=== PATIENT | male | born 1985 | race Caucasian/White ===

== ENCOUNTER 2019-09-30 11:32 | Emergency (ER) | payer SELFPAY ==
[2019-09-30 12:06] VITALS: BP 116/63
[2019-09-30] MEDS ORDERED: ASPIRIN 81 MG TABLET, CHEWABLE PO ONE (12:33)
--- NOTE | 2019-09-30 12:35 | ER Document Report ---
ED Medical Screen (RME) - General Chief Complaint: Chest Pain Stated Complaint: CHEST PAIN Time Seen by Provider: 09/30/19 12:31 Mode of Arrival: Ambulatory Information source: Patient Notes: 33-year-old male presented to ED for complaint of chest pain to the center of his chest since a.m. He states he has never had pain like this in the past. He states he has no shortness of breath. He does have a history of spina bifida. He does smoke a pack a day drinks 2-3 beers a day but no use of illicit drugs. Patient is alert oriented respirations regular and unlabored speaking in full sentences. Was texting throughout his review. I have greeted and performed a rapid initial assessment of this patient. A comprehensive ED assessment and evaluation of the patient, analysis of test res ults and completion of medical decision making process will be conducted by an additional ED providers. Physical Exam - Vital signs Vitals: Temp Pulse Resp BP Pulse Ox 98.5 F 64 16 116/63 100 09/30/19 12:05 09/30/19 12:05 09/30/19 12:05 09/30/19 12:05 09/30/19 12:05 Course - Vital Signs Vital signs: Temp Pulse Resp BP Pulse Ox 98.5 F 64 16 116/63 100 09/30/19 12:05 09/30/19 12:05 09/30/19 12:05 09/30/19 12:05 09/30/19 12:05
[2019-09-30 13:28] LABS: ABSOLUTE EOSINOPHILS # (AUTO) 0.1 10^3/uL (0.0-0.6); ABSOLUTE LYMPHOCYTES (AUTO) 1.3 10^3/uL (0.5-4.7); ABSOLUTE MONOCYTES (AUTO) 0.5 10^3/uL (0.1-1.4); ABSOLUTE NEUT (AUTO) 4.8 10^3/uL (1.7-8.2); BASOPHILS % (AUTO) 0.3 % (0-2); EOSINOPHILS % (AUTO) 1.3 % (0-6); HEMATOCRIT 43.5 % (37.9-51.0); HEMOGLOBIN 14.9 g/dL (13.5-17.0); MEAN CORPUSCULAR HEMOGLOBIN 32.6 pg (27.0-33.4); MEAN CORPUSCULAR HGB CONC 34.2 g/dL (32.0-36.0); MEAN CORPUSCULAR VOLUME 95 fl (80-97); MONOCYTES % (AUTO) 7.3 % (3-13); PLATELET COUNT 249 10^3/uL (150-450); RED BLOOD COUNT 4.56 10^6/uL (4.35-5.55); RED CELL DISTRIBUTION WIDTH 13.4 % (11.5-14.0); SEGMENTED NEUTROPHILS % (AUTO) 72.1 % (42-78); TOTAL CELLS COUNTED % (AUTO) 100 %; WHITE BLOOD COUNT 6.6 10^3/uL (4.0-10.5)
[2019-09-30 13:49] LABS: ALBUMIN 4.7 g/dL (3.5-5.0); ALKALINE PHOSPHATASE 60 U/L (38-126); ANION GAP 6 (5-19); ASPARTATE AMINO TRANSFERASE 134 U/L (17-59); BILIRUBIN,TOTAL 0.5 mg/dL (0.2-1.3); BLOOD UREA NITROGEN 17 mg/dL (7-20); CALCIUM 9.9 mg/dL (8.4-10.2); CARBON DIOXIDE 29 mmol/L (22-30); CHLORIDE 104 mmol/L (98-107); GLUCOSE 81 mg/dL (75-110); POTASSIUM 4.5 mmol/L (3.6-5.0); TOTAL PROTEIN 8.3 g/dL (6.3-8.2)
--- NOTE | 2019-09-30 14:05 | RADIOLOGY REPORT (SQ) ---
EXAM DESCRIPTION: CHEST 2 VIEWS IMAGES COMPLETED DATE/TIME: 09/30/2019 1:45 pm REASON FOR STUDY: Pain center of his chest since morning COMPARISON: None. EXAM PARAMETERS: NUMBER OF VIEWS: Two views. TECHNIQUE: PA and lateral views of the chest were obtained. RADIATION DOSE: NA LIMITATIONS: None. FINDINGS: LUNGS AND PLEURA: No consolidation, pleural effusion or pneumothorax. MEDIASTINUM AND HILAR STRUCTURES: No mediastinal or hilar contour abnormality. HEART AND VASCULAR STRUCTURES: The cardiac silhouette and pulmonary vasculature are within normal serna its. BONES: No acute findings. HARDWARE: None in the chest. OTHER: No other finding. IMPRESSION: No acute cardiopulmonary process. TECHNICAL DOCUMENTATION: JOB ID: [id number] 2010 [employer]- All Rights Reserved Reading location - IP/workstation name: [email or web address]
--- NOTE | 2019-09-30 14:33 | ER Document Report ---
ED Cardiac - General Chief Complaint: Chest Pain Stated Complaint: CHEST PAIN Time Seen by Provider: 09/30/19 12:31 Mode of Arrival: Ambulatory Notes: HPI: Patient is a 33-year-old male who presents today stating the onset of some chest discomfort this morning. He states it is to the substernal region without radiation. No aggravating relieving factors. No cough, fevers, vomiting, or leg swelling. No recent trips or travel. Patient does not use illicit drugs including no cocaine. No family history of early heart attacks or strokes. No recent trauma to the chest. ROS: See HPI All other review of systems reviewed and otherwise negative Reviewed vital signs and nursing note as charted by RN. PHYSICAL EXAM: CONSTITUTIONAL: Alert and oriented and responds appropriately to questions. Well-appearing; well-nourished HEAD: Normocephalic; atraumatic NECK: Supple without meningismus; non-tender; no cervical lymphadenopathy, no masses CARD: Regular rate and rhythm; no murmurs; symmetric distal pulses RESP: Normal chest excursion without splinting or tachypnea; breath sounds clear and equal bilaterally; no wheezes, no rhonchi, no rales ABD/GI: Normal bowel sounds; non-distended; soft, non-tender; no palpable organomegaly or masses BACK: The back appears normal and is non-tender to palpation EXT: Normal ROM in all joints; non-tender to palpation; no edema SKIN: No acute lesions noted NEURO: CN 2-12 intact; 5/5 bilateral upper and lower extremity strength with sensation intact to light touch PSYCH: The patient's mood and manner are appropriate. Grooming and personal hygiene are appropriate. - Related Data Allergies/Adverse Reactions: No Known Allergies Allergy (Verified 09/30/19 12:34) Past Medical History - General Information source: Patient - Social History Smoking Status: Current Every Day Smoker Chew tobacco use (# tins/day): Yes Frequency of alcohol use: daily Drug Abuse: None Family History: Reviewed & Not Pertinent Patient has homicidal ideation: No Physical Exam - Vital signs Vitals: Temp Pulse Resp BP Pulse Ox 98.5 F 64 16 116/63 100 09/30/19 12:05 09/30/19 12:05 09/30/19 12:05 09/30/19 12:05 09/30/19 12:05 Course - Re-evaluation Re-evalutation: Given the above history and physical examination as well as the vital signs as recorded showing no hypoxia or tachycardia, I do believe that the patient has a very low pretest probability for PE or dissection. Patient has very minimal risk factors for acute coronary syndrome. EKG shows a heart rate of 64, normal sinus rhythm, normal axis, slight J-point elevation, no reciprocal changes. No ST elevation or depression. 09/30/19 14:30 X-ray of the chest, repeat vital signs, and labs as recorded. Patient has no tenderness to the right upper quadrant. I have had a long discussion with the patient regarding alcohol use and he does state he drinks heavily. He understa nds the importance of drinking cessation. He understands to return immediately with any change in his pain to his chest or any abdominal pain. I believe this is most likely musculoskeletal in nature. Heart score is less than or equal to 3. Patient will be discharged home with strict return precautions and instructions regarding ibuprofen administration. - Vital Signs Vital signs: Temp Pulse Resp BP Pulse Ox 98.5 F 64 16 116/63 100 09/30/19 12:31 09/30/19 12:05 09/30/19 12:05 09/30/19 12:05 09/30/19 12:05 - Laboratory Result Diagrams: 09/30/19 13:02 09/30/19 13:02 Laboratory results interpreted by me: 09/30/19 13:02 AST 134 H ALT 323 H Total Protein 8.3 H Discharge - Discharge Clinical Impression: Atypical chest pain, Transaminitis Condition: Good Disposition: HOME, SELF-CARE Additional Instructions: Come back immediately for any increased pain, change in location or quality of pain, fevers or vomiting, leg swelling, or any other acute problems. Please refrain from alcohol intake as we have discussed and follow-up with your primary care physician for reassessment of your liver enzymes. Please take 600 mg of ibuprofen every 6 hours as needed for the next 5 days for pain.
--- NOTE | 2019-09-30 14:59 | EKG REPORT ---
SEVERITY:- NORMAL ECG - SINUS RHYTHM ST ELEV, PROBABLE NORMAL EARLY REPOL PATTERN : Confirmed by: Sera Roy MD 30-Sep-2019 14:59:23
== END 2019-09-30 15:22 | disposition home or self-care (01) ==
LOC: ER 11:32
DX: R07.89 Other chest pain (principal); R74.0 Nonspecific elevation of levels of transaminase and lactic acid dehydrogenase [LDH]; F17.210 Nicotine dependence, cigarettes, uncomplicated
CPT/HCPCS: 36415; 71046; 80053; 84484; 85025; 93005; 93010; 99285

== ENCOUNTER 2020-02-09 16:19 | Emergency (ER) | payer SELFPAY ==
--- NOTE | 2020-02-09 16:43 | ER Document Report ---
ED Medical Screen (RME) - General Chief Complaint: Hand Injury Stated Complaint: LEFT HAND/FINGERS PAIN,SWELLING Time Seen by Provider: 02/09/20 16:33 Notes: Patient is a 34-year-old male who presents emergency department with a chief complaint of left third and fourth digit pain. Patient states that he noticed some swelling last night. Patient states he "blacked out" from drinking. He does not know if there was any injury. Denies any fever, body aches, or chills. He has a history of IV drug use. States that he has been clean for 11 months. Exam: Tenderness and edema noted to left third and fourth digits. I have greeted and performed a rapid initial assessment of this patient. A comprehensive ED assessment and evaluation of the patient, analysis of test results and completion of medical decision making process will be conducted by an additional ED providers. - Related Data Allergies/Adverse Reactions: No Known Allergies Allergy (Verified 02/09/20 16:35) Past Medical History - Social History Chew tobacco use (# tins/day): No Frequency of alcohol use: Heavy Drug Abuse: None Physical Exam - Vital signs Vitals: Temp Pulse Resp BP Pulse Ox 98.2 F 70 20 136/74 H 97 02/09/20 16:26 02/09/20 16:26 02/09/20 16:26 02/09/20 16:26 02/09/20 16:26 Course - Vital Signs Vital signs: Temp Pulse Resp BP Pulse Ox 98.2 F 70 20 136/74 H 97 02/09/20 16:26 02/09/20 16:26 02/09/20 16:26 02/09/20 16:26 02/09/20 16:26
[2020-02-09 17:21] LABS: ABSOLUTE EOSINOPHILS # (AUTO) 0.1 10^3/uL (0.0-0.6); ABSOLUTE LYMPHOCYTES (AUTO) 1.7 10^3/uL (0.5-4.7); ABSOLUTE MONOCYTES (AUTO) 0.6 10^3/uL (0.1-1.4); BASOPHILS % (AUTO) 0.2 % (0-2); HEMATOCRIT 45.7 % (37.9-51.0); HEMOGLOBIN 16.1 g/dL (13.5-17.0); LYMPHOCYTES % (AUTO) 16.5 % (13-45); MEAN CORPUSCULAR HEMOGLOBIN 32.3 pg (27.0-33.4); MEAN CORPUSCULAR HGB CONC 35.3 g/dL (32.0-36.0); MEAN CORPUSCULAR VOLUME 91 fl (80-97); MONOCYTES % (AUTO) 6.1 % (3-13); PLATELET COUNT 303 10^3/uL (150-450); RED CELL DISTRIBUTION WIDTH 12.5 % (11.5-14.0); SEGMENTED NEUTROPHILS % (AUTO) 76.2 % (42-78); TOTAL CELLS COUNTED % (AUTO) 100 %; WHITE BLOOD COUNT 10.5 10^3/uL (4.0-10.5)
[2020-02-09 17:42] LABS: ALBUMIN 5.3 g/dL (3.5-5.0); ALKALINE PHOSPHATASE 95 U/L (38-126); ANION GAP 12 (5-19); ASPARTATE AMINO TRANSFERASE 62 U/L (17-59); BILIRUBIN,DIRECT 0.3 mg/dL (0.0-0.4); BILIRUBIN,TOTAL 0.6 mg/dL (0.2-1.3); BLOOD UREA NITROGEN 11 mg/dL (7-20); CALCIUM 10.2 mg/dL (8.4-10.2); CARBON DIOXIDE 26 mmol/L (22-30); CHLORIDE 105 mmol/L (98-107); GLUCOSE 90 mg/dL (75-110); TOTAL PROTEIN 9.3 g/dL (6.3-8.2)
[2020-02-09 17:49] LABS: URINE AMPHETAMINES SCREEN NEGATIVE; URINE BARBITURATES SCREEN NEGATIVE; URINE BENZODIAZEPINES SCREEN NEGATIVE; URINE COCAINE SCREEN NEGATIVE; URINE METHADONE SCREEN NEGATIVE; URINE PHENCYCLIDINE SCREEN NEGATIVE
[2020-02-09 17:50] LABS: URINE MARIJUANA (THC) SCREEN UNCONFIRMED POSITIVE
--- NOTE | 2020-02-09 18:18 | RADIOLOGY REPORT (SQ) ---
EXAM DESCRIPTION: HAND LEFT 3 VIEWS IMAGES COMPLETED DATE/TIME: 02/09/2020 4:58 pm REASON FOR STUDY: left hand pain at 3rd and 4th digits proximally. Pain and swelling. No reported injury. COMPARISON: None. EXAM PARAMETERS: NUMBER OF VIEWS: Three views. TECHNIQUE: AP, lateral and oblique radiographic images acquired of the left hand. LIMITATIONS: None. FINDINGS: MINERALIZATION: Normal. BONES: No acute fracture or dislocation. No worrisome bone lesions. JOINTS: No effusions. SOFT TISSUES: No soft tissue swelling. No foreign body. OTHER: No other significant finding. IMPRESSION: NEGATIVE STUDY OF THE LEFT HAND. NO RADIOGRAPHIC EVIDENCE OF ACUTE INJURY. TECHNICAL DOCUMENTATION: JOB ID: [id number] 2010 [employer]- All Rights Reserved Reading location - IP/workstation name: [email or web address]
--- NOTE | 2020-02-09 18:59 | ER Document Report ---
ED General - General Chief Complaint: Hand Injury Stated Complaint: LEFT HAND/FINGERS PAIN,SWELLING Time Seen by Provider: 02/09/20 16:33 - HPI Notes: 34-year-old male presents with pain to his left hand and third/fourth fingers. Patient states that he woke up today and noticed that his fingers were swollen and there was some bruising. He denies any known injury. However states that he consumed a lot of alcohol yesterday and blacked out. He did not have any injury before blacking out. He has no known wound to the areas. Pain is worsened by bending his fingers. He did not take any medications for pain. - Related Data Allergies/Adverse Reactions: No Known Allergies Allergy (Verified 02/09/20 16:35) Past Medical History - General Information source: Patient - Social History Smoking Status: Current Every Day Smoker Chew tobacco use (# tins/day): No Frequency of alcohol use: Heavy Drug Abuse: None Family History: Reviewed & Not Pertinent Patient has homicidal ideation: No Review of Systems - Review of Systems Constitutional: denies: Fever EENT: No symptoms reported Cardiovascular: No symptoms reported Respiratory: No symptoms reported Gastrointestinal: No symptoms reported Genitourinary: No symptoms reported Male Genitourinary: No symptoms reported Musculoskeletal: See HPI Skin: denies: Lesions Hematologic/Lymphatic: No symptoms reported Neurological/Psychological: denies: Numbness Physical Exam - Vital signs Vitals: Temp Pulse Resp BP Pulse Ox 98.2 F 70 20 136/74 H 97 02/09/20 16:26 02/09/20 16:26 02/09/20 16:26 02/09/20 16:26 02/09/20 16:26 - General General appearance: Appears well, Alert In distress: None - HEENT Head: Normocephalic, Atraumatic Extraocular movements intact: Yes Pupils: PERRL - Respiratory Respiratory status: No respiratory distress - Cardiovascular Rhythm: Regular Pulses: Normal: Radial Normal capillary refill: Yes - Abdominal Inspection: No: Obese - Extremities Notes: There is ecchymosis to the palmar aspect to the left third/fourth digits and to the distal palm. There are no wounds. Patient is able to flex and extend dig its, there is some limitation in range of motion secondary to pain in. Passive range of motion is intact. - Neurological Neuro grossly intact: Yes Cognition: Normal Orientation: AAOx4 Notes: Motor and sensation intact to left hand - Psychological Associated symptoms: Normal affect - Skin Skin Temperature: Warm Course - Re-evaluation Re-evalutation: 34-year-old male presents with pain, swelling and ecchymosis to his left hand. Unknown injury, however likely occurred while patient was intoxicated last night as he awoke with the symptoms today. Left hand is neurovascularly intact. There is ecchymosis present. There are no wounds or erythema to suggest infection. Suspect soft tissue injury. X-ray is negative for fracture. Would not suspect ligamentous injury has intact range of motion is present. As part of the triage process he had a laboratory evaluation performed which included blood cultures and urine drug screen. No leukocytosis, electrolytes within normal limits. Patient was provided aluminum splinting along with medication. Discharged with ibuprofen. Return precautions given, stable at time of discharge. - Vital Signs Vital signs: Temp Pulse Resp BP Pulse Ox 98.3 F 63 16 127/72 H 100 02/09/20 19:31 02/09/20 19:31 02/09/20 19:31 02/09/20 19:31 02/09/20 19:31 - Laboratory Result Diagrams: 02/09/20 16:55 02/09/20 16:55 Laboratory results interpreted by me: 02/09/20 16:55 AST 62 H ALT 66 H Total Protein 9.3 H Albumin 5.3 H - Diagnostic Test Radiology reviewed: Image reviewed, Reports reviewed Discharge - Discharge Clinical Impression: Hand injury Qualifiers: Encounter type: initial encounter Laterality: left Qualified Code(s): S69.92XA - Unspecified injury of left wrist, hand and finger(s), initial encounter Disposition: HOME, SELF-CARE Prescriptions: Ibuprofen [Ibu] 800 mg PO Q8H PRN #60 tablet PRN Reason: Forms: Return to Work
[2020-02-09] MEDS ORDERED: HYDROCODONE/ACETAMINOPHEN 5-325 MG TABLET PO ONE (19:09)
[2020-02-09] MEDS ORDERED: IBUPROFEN 800 MG TABLET PO ONE (19:09)
[2020-02-09 19:32] VITALS: BP 127/72
== END 2020-02-09 19:56 | disposition home or self-care (01) ==
LOC: ER 16:19
DX: S69.92XA Unspecified injury of left wrist, hand and finger(s), initial encounter (principal); X58.XXXA Exposure to other specified factors, initial encounter; F17.200 Nicotine dependence, unspecified, uncomplicated
CPT/HCPCS: 36415; 80053; 80307; 85025; 87040; 99284